=== PATIENT | male | born 1970 | race Caucasian/White ===

== ENCOUNTER 2023-02-11 19:30 | Inpatient (IN) | payer MEDICAID ==
[~2023-02-11] VITALS: Ht 175.3 cm; Wt 78.4 kg
[2023-02-11 20:00] VITALS: BP 130/87
[2023-02-11] MEDS ORDERED: ONDANSETRON HCL 4MG/2ML INJ IV PRN (21:15)
[2023-02-11] MEDS ORDERED: DEXTROSE 50% WATER 50ML SYRINGE IV PRN (21:15)
[2023-02-11] MEDS ORDERED: HYDRALAZINE HCL 10MG TABLET PO PRN (21:43)
[2023-02-11] MEDS: BLOOD SUGAR DIAGNOSTIC STRIP TEST SCH (22:15)
[2023-02-11] MEDS: ATORVASTATIN CALCIUM 40MG TABLET PO SCH (22:28)
[2023-02-11] MEDS: INSULIN GLARGINE 100 UNITS/ML SUBCUT SCH (22:30)
[2023-02-12] MEDS: BLOOD SUGAR DIAGNOSTIC STRIP TEST SCH ×4 (06:30→21:48)
[2023-02-12 07:08] LABS: CHLORIDE 109 mEq/L (98-107)
[2023-02-12 07:17] LABS: BASOPHILS % 0.5 % (0.0-2.0); EOSINOPHILS % 4.8 % (0.0-5.0); HEMATOCRIT. 45.6 % (42.0-52.0); HEMOGLOBIN. 15.4 g/dL (14.0-18.0); LYMPHOCYTES % 19.8 % (20.0-50.0); MEAN CORPUSCULAR HEMOGLOBIN 29.4 pg (28.0-32.0); MEAN PLATELET VOLUME 10.3 fl (7.4-10.4); NEUTROPHILS % 67.9 % (40.0-76.0); PLATELET 141 x1000/uL (130-400); RED BLOOD CELL COUNT 5.24 mill/uL (4.7-6.1); RED CELL DISTRIBUTION WIDTH 13.3 % (11.6-14.6)
[2023-02-12 08:00] VITALS: BP 129/86
[2023-02-12] MEDS: SPIRONOLACTONE 25MG TABLET PO SCH (09:34)
[2023-02-12] MEDS: ASPIRIN 81MG EC TABLET PO SCH (09:34)
[2023-02-12] MEDS: LOSARTAN POTASSIUM 100 MG TABLET PO SCH (09:35)
[2023-02-12] MEDS: CARVEDILOL 12.5MG TABLET PO SCH ×2 (09:36→16:56)
[2023-02-12] MEDS: AMLODIPINE 10MG TABLET PO SCH (09:36)
[2023-02-12] MEDS ORDERED: ENOXAPARIN 80MG/0.8ML SYR SUBCUT NR (11:30)
[2023-02-12] MEDS: ENOXAPARIN 40MG/0.4ML SYR SUBCUT SCH (12:33)
[2023-02-12] MEDS: INSULIN LISPRO 100 UNITS/ML SUBCUT SCH ×4 (12:34→21:00)
[2023-02-12] MEDS ORDERED: BISACODYL 5MG TABLET PO PRN (17:00)
[2023-02-12] MEDS: DOCUSATE SODIUM 100MG CAPSULE PO SCH (17:00)
[2023-02-12] MEDS ORDERED: LACTULOSE 20G/30ML UDC PO PRN (17:00)
[2023-02-12 20:08] VITALS: BP 137/89
[2023-02-12] MEDS ORDERED: ATORVASTATIN CALCIUM 40MG TABLET PO SCH (21:00)
[2023-02-12] MEDS: FAMOTIDINE 20MG TABLET PO SCH (22:05)
[2023-02-12] MEDS: ATORVASTATIN CALCIUM 40MG TABLET PO SCH (22:06)
[2023-02-12] MEDS: INSULIN GLARGINE 100 UNITS/ML SUBCUT SCH (22:10)
[2023-02-13] MEDS: BLOOD SUGAR DIAGNOSTIC STRIP TEST SCH ×4 (06:42→21:54)
[2023-02-13] MEDS: INSULIN LISPRO 100 UNITS/ML SUBCUT SCH ×4 (06:45→22:00)
[2023-02-13 07:08] LABS: BASOPHILS % 0.5 % (0.0-2.0); EOSINOPHILS % 3.4 % (0.0-5.0); HEMATOCRIT. 46.2 % (42.0-52.0); HEMOGLOBIN. 15.7 g/dL (14.0-18.0); LYMPHOCYTES % 20.6 % (20.0-50.0); MEAN CORPUSCULAR HEMOGLOBIN 29.5 pg (28.0-32.0); MEAN CORPUSCULAR VOLUME 86.8 fL (80.0-94.0); MEAN PLATELET VOLUME 10.4 fl (7.4-10.4); MONOCYTES % 7.1 % (2.0-8.0); NEUTROPHILS % 68.4 % (40.0-76.0); PLATELET 164 x1000/uL (130-400); RED BLOOD CELL COUNT 5.32 mill/uL (4.7-6.1)
[2023-02-13 07:40] LABS: CHLORIDE 107 mEq/L (98-107)
[2023-02-13 08:00] VITALS: BP 130/90
[2023-02-13 08:00] LABS: HDL CHOLESTEROL 29 mg/dL (40-59); LDL CHOLESTEROL 34 mg/dL (5-100)
[2023-02-13] MEDS: CLOPIDOGREL 75MG TABLET PO SCH (08:59)
[2023-02-13] MEDS: DOCUSATE SODIUM 100MG CAPSULE PO SCH ×2 (08:59→16:16)
[2023-02-13] MEDS: SPIRONOLACTONE 25MG TABLET PO SCH (09:00)
[2023-02-13] MEDS: LOSARTAN POTASSIUM 100 MG TABLET PO SCH (09:00)
[2023-02-13] MEDS: FAMOTIDINE 20MG TABLET PO SCH ×2 (09:00→21:55)
[2023-02-13] MEDS: ASPIRIN 81MG EC TABLET PO SCH (09:00)
[2023-02-13] MEDS: CARVEDILOL 12.5MG TABLET PO SCH ×2 (09:00→16:16)
[2023-02-13] MEDS: AMLODIPINE 10MG TABLET PO SCH (09:02)
[2023-02-13] MEDS: ENOXAPARIN 40MG/0.4ML SYR SUBCUT SCH (12:14)
[2023-02-13] MEDS: ACETAMINOPHEN 325MG TABLET PO PRN (13:58)
[2023-02-13 20:00] VITALS: BP 125/82
[2023-02-13] MEDS: ATORVASTATIN CALCIUM 40MG TABLET PO SCH (21:56)
[2023-02-13] MEDS: INSULIN GLARGINE 100 UNITS/ML SUBCUT SCH (22:02)
[2023-02-14 06:31] LABS: BASOPHILS % 0.5 % (0.0-2.0); EOSINOPHILS % 2.5 % (0.0-5.0); HEMOGLOBIN. 15.2 g/dL (14.0-18.0); LYMPHOCYTES % 16.8 % (20.0-50.0); MEAN CORPUSCULAR HEMOGLOBIN 28.6 pg (28.0-32.0); MEAN CORPUSCULAR VOLUME 86.9 fL (80.0-94.0); MEAN PLATELET VOLUME 10.1 fl (7.4-10.4); MONOCYTES % 6.9 % (2.0-8.0); NEUTROPHILS % 73.3 % (40.0-76.0); PLATELET 139 x1000/uL (130-400); RED BLOOD CELL COUNT 5.29 mill/uL (4.7-6.1); RED CELL DISTRIBUTION WIDTH 12.8 % (11.6-14.6)
[2023-02-14] MEDS: BLOOD SUGAR DIAGNOSTIC STRIP TEST SCH ×4 (06:50→21:00)
[2023-02-14] MEDS: INSULIN LISPRO 100 UNITS/ML SUBCUT SCH ×4 (06:50→22:35)
[2023-02-14 08:00] VITALS: BP 141/90
[2023-02-14 08:07] LABS: CHLORIDE 110 mEq/L (98-107)
[2023-02-14] MEDS: CLOPIDOGREL 75MG TABLET PO SCH (08:26)
[2023-02-14] MEDS: DOCUSATE SODIUM 100MG CAPSULE PO SCH ×2 (08:27→17:46)
[2023-02-14] MEDS: LOSARTAN POTASSIUM 100 MG TABLET PO SCH (08:27)
[2023-02-14] MEDS: AMLODIPINE 10MG TABLET PO SCH (08:27)
[2023-02-14] MEDS: SPIRONOLACTONE 25MG TABLET PO SCH (08:27)
[2023-02-14] MEDS: CARVEDILOL 12.5MG TABLET PO SCH ×2 (08:27→17:46)
[2023-02-14] MEDS: ASPIRIN 81MG EC TABLET PO SCH (08:28)
[2023-02-14] MEDS: ACETAMINOPHEN 325MG TABLET PO PRN (08:28)
[2023-02-14] MEDS: FAMOTIDINE 20MG TABLET PO SCH ×2 (08:28→22:30)
[2023-02-14] MEDS: ENOXAPARIN 40MG/0.4ML SYR SUBCUT SCH (12:38)
[2023-02-14 20:00] VITALS: BP 115/83
[2023-02-14] MEDS: ATORVASTATIN CALCIUM 40MG TABLET PO SCH (22:30)
[2023-02-14] MEDS: INSULIN GLARGINE 100 UNITS/ML SUBCUT SCH (22:40)
[2023-02-15 06:06] LABS: HEMATOCRIT 43.8 % (42.0-52.0); HEMOGLOBIN 14.8 g/dL (14.0-18.0); MEAN CORPUSCULAR HEMOGLOBIN 29.1 pg (28.0-32.0); MEAN CORPUSCULAR VOLUME 85.9 fL (80.0-94.0); PLATELET 136 x1000/uL (130-400); RED BLOOD CELL COUNT 5.09 mill/uL (4.7-6.1); RED CELL DISTRIBUTION WIDTH 13.1 % (11.6-14.6)
[2023-02-15] MEDS: BLOOD SUGAR DIAGNOSTIC STRIP TEST SCH ×4 (06:30→21:25)
[2023-02-15 06:33] LABS: CHLORIDE 105 mEq/L (98-107)
[2023-02-15 08:00] VITALS: BP 133/89
[2023-02-15] MEDS: INSULIN LISPRO 100 UNITS/ML SUBCUT SCH ×4 (09:00→21:44)
[2023-02-15] MEDS: DOCUSATE SODIUM 100MG CAPSULE PO SCH ×2 (09:37→17:05)
[2023-02-15] MEDS: CARVEDILOL 12.5MG TABLET PO SCH ×2 (09:38→17:06)
[2023-02-15] MEDS: SPIRONOLACTONE 25MG TABLET PO SCH (09:39)
[2023-02-15] MEDS: LOSARTAN POTASSIUM 100 MG TABLET PO SCH (09:39)
[2023-02-15] MEDS: AMLODIPINE 10MG TABLET PO SCH (09:39)
[2023-02-15] MEDS: ASPIRIN 81MG EC TABLET PO SCH (09:39)
[2023-02-15] MEDS: CLOPIDOGREL 75MG TABLET PO SCH (09:39)
[2023-02-15] MEDS ORDERED: NALOXONE HCL 0.4MG/ML VIAL IV PRN (10:00)
[2023-02-15] MEDS: FAMOTIDINE 20MG TABLET PO SCH ×2 (11:11→21:25)
[2023-02-15] MEDS: ENOXAPARIN 40MG/0.4ML SYR SUBCUT SCH (12:15)
[2023-02-15] MEDS: HYDROCODONE/ACETAMINOPHEN 5/325MG TABLET PO PRN ×2 (12:16→21:26)
[2023-02-15 20:35] VITALS: BP 144/72
[2023-02-15] MEDS: ATORVASTATIN CALCIUM 40MG TABLET PO SCH (21:25)
[2023-02-15] MEDS: INSULIN GLARGINE 100 UNITS/ML SUBCUT SCH (21:45)
[2023-02-16 05:33] LABS: HEMATOCRIT 42.7 % (42.0-52.0); HEMOGLOBIN 14.6 g/dL (14.0-18.0); MEAN CORPUSCULAR HEMOGLOBIN 29.5 pg (28.0-32.0); MEAN CORPUSCULAR VOLUME 86.4 fL (80.0-94.0); PLATELET 125 x1000/uL (130-400); RED BLOOD CELL COUNT 4.94 mill/uL (4.7-6.1); RED CELL DISTRIBUTION WIDTH 12.8 % (11.6-14.6)
[2023-02-16 05:52] LABS: CHLORIDE 107 mEq/L (98-107)
[2023-02-16] MEDS: BLOOD SUGAR DIAGNOSTIC STRIP TEST SCH ×4 (06:30→21:24)
[2023-02-16 08:00] VITALS: BP 131/83
[2023-02-16] MEDS: LOSARTAN POTASSIUM 100 MG TABLET PO SCH (08:26)
[2023-02-16] MEDS: DOCUSATE SODIUM 100MG CAPSULE PO SCH ×2 (08:26→16:23)
[2023-02-16] MEDS: CLOPIDOGREL 75MG TABLET PO SCH (08:26)
[2023-02-16] MEDS: FAMOTIDINE 20MG TABLET PO SCH ×2 (08:26→20:58)
[2023-02-16] MEDS: SPIRONOLACTONE 25MG TABLET PO SCH (08:27)
[2023-02-16] MEDS: AMLODIPINE 10MG TABLET PO SCH (08:27)
[2023-02-16] MEDS: ASPIRIN 81MG EC TABLET PO SCH (08:27)
[2023-02-16] MEDS: CARVEDILOL 12.5MG TABLET PO SCH ×2 (08:27→16:23)
[2023-02-16] MEDS: INSULIN LISPRO 100 UNITS/ML SUBCUT SCH ×4 (08:35→21:46)
[2023-02-16] MEDS: ENOXAPARIN 40MG/0.4ML SYR SUBCUT SCH (12:21)
[2023-02-16] MEDS: HYDROCODONE/ACETAMINOPHEN 5/325MG TABLET PO PRN (16:23)
[2023-02-16 20:00] VITALS: BP 109/76
[2023-02-16] MEDS: ATORVASTATIN CALCIUM 40MG TABLET PO SCH (20:58)
[2023-02-16] MEDS: INSULIN GLARGINE 100 UNITS/ML SUBCUT SCH (21:44)
[2023-02-17] MEDS: BLOOD SUGAR DIAGNOSTIC STRIP TEST SCH ×4 (05:47→21:00)
[2023-02-17 06:50] LABS: BASOPHILS % 0.5 % (0.0-2.0); EOSINOPHILS % 2.6 % (0.0-5.0); HEMATOCRIT. 43.8 % (42.0-52.0); HEMOGLOBIN. 14.9 g/dL (14.0-18.0); LYMPHOCYTES % 24.5 % (20.0-50.0); MEAN CORPUSCULAR HEMOGLOBIN 29.2 pg (28.0-32.0); MEAN CORPUSCULAR VOLUME 85.9 fL (80.0-94.0); MEAN PLATELET VOLUME 10.9 fl (7.4-10.4); MONOCYTES % 10.5 % (2.0-8.0); NEUTROPHILS % 61.9 % (40.0-76.0); PLATELET 132 x1000/uL (130-400)
[2023-02-17 07:11] LABS: CHLORIDE 106 mEq/L (98-107)
[2023-02-17 08:00] VITALS: BP 137/95
[2023-02-17] MEDS: SPIRONOLACTONE 25MG TABLET PO SCH (08:30)
[2023-02-17] MEDS: DOCUSATE SODIUM 100MG CAPSULE PO SCH ×2 (08:30→16:15)
[2023-02-17] MEDS: CLOPIDOGREL 75MG TABLET PO SCH (08:30)
[2023-02-17] MEDS: CARVEDILOL 12.5MG TABLET PO SCH ×2 (08:31→16:15)
[2023-02-17] MEDS: LOSARTAN POTASSIUM 100 MG TABLET PO SCH (08:31)
[2023-02-17] MEDS: AMLODIPINE 10MG TABLET PO SCH (08:31)
[2023-02-17] MEDS: ASPIRIN 81MG EC TABLET PO SCH (08:31)
[2023-02-17] MEDS: ACETAMINOPHEN 325MG TABLET PO PRN (08:34)
[2023-02-17] MEDS: FAMOTIDINE 20MG TABLET PO SCH ×2 (08:35→20:48)
[2023-02-17] MEDS: INSULIN LISPRO 100 UNITS/ML SUBCUT SCH ×4 (09:00→20:52)
[2023-02-17] MEDS: ENOXAPARIN 40MG/0.4ML SYR SUBCUT SCH (12:50)
[2023-02-17 20:00] VITALS: BP 130/78
[2023-02-17] MEDS: ATORVASTATIN CALCIUM 40MG TABLET PO SCH (20:48)
[2023-02-17] MEDS: INSULIN GLARGINE 100 UNITS/ML SUBCUT SCH (22:39)
[2023-02-18] MEDS: BLOOD SUGAR DIAGNOSTIC STRIP TEST SCH ×4 (06:30→20:37)
[2023-02-18 08:00] VITALS: BP 127/88
[2023-02-18] MEDS: LOSARTAN POTASSIUM 100 MG TABLET PO SCH (09:24)
[2023-02-18] MEDS: ASPIRIN 81MG EC TABLET PO SCH (09:24)
[2023-02-18] MEDS: DOCUSATE SODIUM 100MG CAPSULE PO SCH ×2 (09:24→17:21)
[2023-02-18] MEDS: FAMOTIDINE 20MG TABLET PO SCH ×2 (09:24→20:31)
[2023-02-18] MEDS: AMLODIPINE 10MG TABLET PO SCH (09:24)
[2023-02-18] MEDS: CLOPIDOGREL 75MG TABLET PO SCH (09:24)
[2023-02-18] MEDS: SPIRONOLACTONE 25MG TABLET PO SCH (09:24)
[2023-02-18] MEDS: CARVEDILOL 12.5MG TABLET PO SCH ×2 (09:24→17:24)
[2023-02-18] MEDS: INSULIN LISPRO 100 UNITS/ML SUBCUT SCH ×4 (09:33→20:34)
[2023-02-18] MEDS: ENOXAPARIN 40MG/0.4ML SYR SUBCUT SCH (12:08)
[2023-02-18 20:00] VITALS: BP 118/82
[2023-02-18] MEDS: ATORVASTATIN CALCIUM 40MG TABLET PO SCH (20:31)
[2023-02-18] MEDS: INSULIN GLARGINE 100 UNITS/ML SUBCUT SCH (22:20)
[2023-02-19] MEDS: BLOOD SUGAR DIAGNOSTIC STRIP TEST SCH ×4 (06:30→21:00)
[2023-02-19 07:18] LABS: HEMATOCRIT 43.8 % (42.0-52.0); MEAN CORPUSCULAR HEMOGLOBIN 29.4 pg (28.0-32.0); MEAN CORPUSCULAR VOLUME 85.7 fL (80.0-94.0); PLATELET 144 x1000/uL (130-400); RED CELL DISTRIBUTION WIDTH 12.6 % (11.6-14.6)
[2023-02-19 08:00] VITALS: BP 127/47
[2023-02-19 08:28] LABS: CHLORIDE 108 mEq/L (98-107)
[2023-02-19] MEDS: INSULIN LISPRO 100 UNITS/ML SUBCUT SCH ×4 (09:00→21:00)
[2023-02-19] MEDS: DOCUSATE SODIUM 100MG CAPSULE PO SCH ×2 (09:53→17:00)
[2023-02-19] MEDS: LOSARTAN POTASSIUM 100 MG TABLET PO SCH (09:53)
[2023-02-19] MEDS: SPIRONOLACTONE 25MG TABLET PO SCH (09:54)
[2023-02-19] MEDS: CLOPIDOGREL 75MG TABLET PO SCH (09:54)
[2023-02-19] MEDS: AMLODIPINE 10MG TABLET PO SCH (09:54)
[2023-02-19] MEDS: FAMOTIDINE 20MG TABLET PO SCH ×2 (09:54→21:18)
[2023-02-19] MEDS: CARVEDILOL 12.5MG TABLET PO SCH ×2 (09:55→17:00)
[2023-02-19] MEDS: ASPIRIN 81MG EC TABLET PO SCH (09:59)
[2023-02-19] MEDS: ENOXAPARIN 40MG/0.4ML SYR SUBCUT SCH (13:55)
[2023-02-19 20:16] VITALS: BP 102/96
[2023-02-19] MEDS: ATORVASTATIN CALCIUM 40MG TABLET PO SCH (21:18)
[2023-02-19] MEDS: ACETAMINOPHEN 325MG TABLET PO PRN ×2 (21:18→22:18)
[2023-02-19] MEDS: INSULIN GLARGINE 100 UNITS/ML SUBCUT SCH (22:00)
[2023-02-20] MEDS: INSULIN LISPRO 100 UNITS/ML SUBCUT SCH ×4 (06:28→21:42)
[2023-02-20] MEDS: BLOOD SUGAR DIAGNOSTIC STRIP TEST SCH ×4 (06:28→21:16)
[2023-02-20 08:00] VITALS: BP 122/80
[2023-02-20] MEDS: FAMOTIDINE 20MG TABLET PO SCH ×2 (08:51→21:37)
[2023-02-20] MEDS: ASPIRIN 81MG EC TABLET PO SCH (08:51)
[2023-02-20] MEDS: CLOPIDOGREL 75MG TABLET PO SCH (08:51)
[2023-02-20] MEDS: SPIRONOLACTONE 25MG TABLET PO SCH (08:51)
[2023-02-20] MEDS: DOCUSATE SODIUM 100MG CAPSULE PO SCH ×2 (08:51→17:36)
[2023-02-20] MEDS: LOSARTAN POTASSIUM 100 MG TABLET PO SCH (08:51)
[2023-02-20] MEDS: AMLODIPINE 10MG TABLET PO SCH (08:52)
[2023-02-20] MEDS: CARVEDILOL 12.5MG TABLET PO SCH ×2 (08:52→17:38)
[2023-02-20] MEDS: HYDROCODONE/ACETAMINOPHEN 5/325MG TABLET PO PRN (08:53)
[2023-02-20] MEDS: ENOXAPARIN 40MG/0.4ML SYR SUBCUT SCH (12:48)
[2023-02-20 20:00] VITALS: BP 119/78
[2023-02-20] MEDS: ATORVASTATIN CALCIUM 40MG TABLET PO SCH (21:37)
[2023-02-20] MEDS: INSULIN GLARGINE 100 UNITS/ML SUBCUT SCH (21:44)
[2023-02-21] MEDS: BLOOD SUGAR DIAGNOSTIC STRIP TEST SCH ×4 (06:02→21:24)
[2023-02-21] MEDS: INSULIN LISPRO 100 UNITS/ML SUBCUT SCH ×4 (06:29→21:00)
[2023-02-21 07:16] LABS: HEMATOCRIT 42.4 % (42.0-52.0); HEMOGLOBIN 14.5 g/dL (14.0-18.0); MEAN CORPUSCULAR HEMOGLOBIN 29.5 pg (28.0-32.0); PLATELET 146 x1000/uL (130-400); RED BLOOD CELL COUNT 4.93 mill/uL (4.7-6.1); RED CELL DISTRIBUTION WIDTH 12.4 % (11.6-14.6)
[2023-02-21 08:00] VITALS: BP 119/85
[2023-02-21 08:05] LABS: CHLORIDE 108 mEq/L (98-107)
[2023-02-21] MEDS: FAMOTIDINE 20MG TABLET PO SCH ×2 (09:00→21:26)
[2023-02-21] MEDS: LOSARTAN POTASSIUM 100 MG TABLET PO SCH (09:18)
[2023-02-21] MEDS: CLOPIDOGREL 75MG TABLET PO SCH (09:18)
[2023-02-21] MEDS: ASPIRIN 81MG EC TABLET PO SCH (09:18)
[2023-02-21] MEDS: DOCUSATE SODIUM 100MG CAPSULE PO SCH ×2 (09:18→16:57)
[2023-02-21] MEDS: AMLODIPINE 10MG TABLET PO SCH (09:19)
[2023-02-21] MEDS: CARVEDILOL 12.5MG TABLET PO SCH ×2 (09:19→16:58)
[2023-02-21] MEDS: SPIRONOLACTONE 25MG TABLET PO SCH (09:19)
[2023-02-21] MEDS: ENOXAPARIN 40MG/0.4ML SYR SUBCUT SCH (13:32)
[2023-02-21 20:09] VITALS: BP 139/84
[2023-02-21] MEDS: ATORVASTATIN CALCIUM 40MG TABLET PO SCH (21:26)
[2023-02-21] MEDS: INSULIN GLARGINE 100 UNITS/ML SUBCUT SCH (21:30)
[2023-02-22] MEDS: INSULIN LISPRO 100 UNITS/ML SUBCUT SCH ×7 (06:27→20:58)
[2023-02-22] MEDS: BLOOD SUGAR DIAGNOSTIC STRIP TEST SCH ×4 (06:28→21:50)
[2023-02-22 08:00] VITALS: BP 130/82
[2023-02-22] MEDS: CLOPIDOGREL 75MG TABLET PO SCH (09:22)
[2023-02-22] MEDS: DOCUSATE SODIUM 100MG CAPSULE PO SCH ×2 (09:22→17:57)
[2023-02-22] MEDS: FAMOTIDINE 20MG TABLET PO SCH ×2 (09:22→20:48)
[2023-02-22] MEDS: ASPIRIN 81MG EC TABLET PO SCH (09:22)
[2023-02-22] MEDS: SPIRONOLACTONE 25MG TABLET PO SCH (09:23)
[2023-02-22] MEDS: AMLODIPINE 10MG TABLET PO SCH (09:23)
[2023-02-22] MEDS: CARVEDILOL 12.5MG TABLET PO SCH ×2 (09:24→18:00)
[2023-02-22] MEDS: LOSARTAN POTASSIUM 100 MG TABLET PO SCH (09:28)
[2023-02-22] MEDS: ENOXAPARIN 40MG/0.4ML SYR SUBCUT SCH (14:28)
[2023-02-22 20:27] VITALS: BP 118/74
[2023-02-22] MEDS: ATORVASTATIN CALCIUM 40MG TABLET PO SCH (20:48)
[2023-02-22] MEDS: INSULIN GLARGINE 100 UNITS/ML SUBCUT SCH (22:59)
[2023-02-23] MEDS: BLOOD SUGAR DIAGNOSTIC STRIP TEST SCH ×4 (06:20→21:55)
[2023-02-23] MEDS: INSULIN LISPRO 100 UNITS/ML SUBCUT SCH ×7 (07:00→22:14)
[2023-02-23 07:12] LABS: HEMATOCRIT 42.6 % (42.0-52.0); HEMOGLOBIN 14.4 g/dL (14.0-18.0); MEAN CORPUSCULAR VOLUME 85.6 fL (80.0-94.0); PLATELET 162 x1000/uL (130-400); RED BLOOD CELL COUNT 4.98 mill/uL (4.7-6.1); RED CELL DISTRIBUTION WIDTH 12.4 % (11.6-14.6)
[2023-02-23 07:42] LABS: CHLORIDE 110 mEq/L (98-107)
[2023-02-23 08:00] VITALS: BP 120/83
[2023-02-23] MEDS: CLOPIDOGREL 75MG TABLET PO SCH (08:23)
[2023-02-23] MEDS: LOSARTAN POTASSIUM 100 MG TABLET PO SCH (08:23)
[2023-02-23] MEDS: DOCUSATE SODIUM 100MG CAPSULE PO SCH ×2 (08:23→17:30)
[2023-02-23] MEDS: ASPIRIN 81MG EC TABLET PO SCH (08:23)
[2023-02-23] MEDS: FAMOTIDINE 20MG TABLET PO SCH ×2 (08:23→21:55)
[2023-02-23] MEDS: SPIRONOLACTONE 25MG TABLET PO SCH (08:26)
[2023-02-23] MEDS: CARVEDILOL 12.5MG TABLET PO SCH ×2 (08:27→17:31)
[2023-02-23] MEDS: AMLODIPINE 10MG TABLET PO SCH (08:27)
[2023-02-23] MEDS: ENOXAPARIN 40MG/0.4ML SYR SUBCUT SCH (12:45)
[2023-02-23 20:00] VITALS: BP 120/79
[2023-02-23] MEDS: ATORVASTATIN CALCIUM 40MG TABLET PO SCH (21:55)
[2023-02-23] MEDS: INSULIN GLARGINE 100 UNITS/ML SUBCUT SCH (22:16)
[2023-02-24] MEDS: BLOOD SUGAR DIAGNOSTIC STRIP TEST SCH ×4 (07:24→21:11)
[2023-02-24 08:00] VITALS: BP 128/83
[2023-02-24] MEDS: CARVEDILOL 12.5MG TABLET PO SCH ×2 (11:54→19:15)
[2023-02-24] MEDS: LOSARTAN POTASSIUM 100 MG TABLET PO SCH (11:54)
[2023-02-24] MEDS: ASPIRIN 81MG EC TABLET PO SCH (11:54)
[2023-02-24] MEDS: DOCUSATE SODIUM 100MG CAPSULE PO SCH ×2 (11:54→19:16)
[2023-02-24] MEDS: FAMOTIDINE 20MG TABLET PO SCH ×2 (11:54→21:11)
[2023-02-24] MEDS: CLOPIDOGREL 75MG TABLET PO SCH (11:54)
[2023-02-24] MEDS: AMLODIPINE 10MG TABLET PO SCH (11:55)
[2023-02-24] MEDS: SPIRONOLACTONE 25MG TABLET PO SCH (11:56)
[2023-02-24] MEDS: INSULIN LISPRO 100 UNITS/ML SUBCUT SCH ×7 (12:00→22:28)
[2023-02-24] MEDS: ENOXAPARIN 40MG/0.4ML SYR SUBCUT SCH (19:17)
[2023-02-24 20:00] VITALS: BP 124/84
[2023-02-24] MEDS: ATORVASTATIN CALCIUM 40MG TABLET PO SCH (21:11)
[2023-02-24] MEDS: INSULIN GLARGINE 100 UNITS/ML SUBCUT SCH (22:28)
[2023-02-25] MEDS: BLOOD SUGAR DIAGNOSTIC STRIP TEST SCH (06:37)
[2023-02-25] MEDS: INSULIN LISPRO 100 UNITS/ML SUBCUT SCH ×2 (06:51→08:02)
[2023-02-25 07:01] LABS: HEMATOCRIT 41.9 % (42.0-52.0); HEMOGLOBIN 14.4 g/dL (14.0-18.0); MEAN CORPUSCULAR HEMOGLOBIN 29.4 pg (28.0-32.0); MEAN CORPUSCULAR VOLUME 85.6 fL (80.0-94.0); PLATELET 162 x1000/uL (130-400); RED CELL DISTRIBUTION WIDTH 12.5 % (11.6-14.6)
[2023-02-25 07:52] LABS: CHLORIDE 106 mEq/L (98-107)
[2023-02-25 08:00] VITALS: BP 99/55
[2023-02-25] MEDS: SPIRONOLACTONE 25MG TABLET PO SCH (08:39)
[2023-02-25] MEDS: CARVEDILOL 12.5MG TABLET PO SCH (08:40)
[2023-02-25] MEDS: LOSARTAN POTASSIUM 100 MG TABLET PO SCH (08:40)
[2023-02-25] MEDS: DOCUSATE SODIUM 100MG CAPSULE PO SCH (08:40)
[2023-02-25] MEDS: AMLODIPINE 10MG TABLET PO SCH (08:40)
[2023-02-25] MEDS: ASPIRIN 81MG EC TABLET PO SCH (08:40)
[2023-02-25] MEDS: CLOPIDOGREL 75MG TABLET PO SCH (08:40)
[2023-02-25] MEDS: FAMOTIDINE 20MG TABLET PO SCH (08:41)
[2023-02-25 10:04] VITALS: BP 99/55
[2023-02-25] MEDS ORDERED: ASPI-1406 PO (10:10)
[2023-02-25] MEDS ORDERED: CLOP-31 PO (10:10)
[2023-02-25] MEDS ORDERED: AMLO10TA80 PO (10:10)
[2023-02-25] MEDS ORDERED: LIP40 PO (10:10)
[2023-02-25] MEDS ORDERED: COR12 PO ×2 (10:10→10:11)
[2023-02-25] MEDS ORDERED: SPIR25TA PO (10:10)
[2023-02-25] MEDS ORDERED: LANTUSUD SUBCUT (10:10)
[2023-02-25] MEDS ORDERED: LOSA100T32 PO (10:10)
== END 2023-02-25 10:30 | disposition home health service (06) | DRG 45 ==
PROVIDERS: ADMIT Psychiatry & Neurology Neurology; ATTEND Hospitalist
DX: I63.512 Cerebral infarction due to unspecified occlusion or stenosis of left middle cerebral artery (principal); I21.4 Non-ST elevation (NSTEMI) myocardial infarction; I50.23 Acute on chronic systolic (congestive) heart failure; E11.65 Type 2 diabetes mellitus with hyperglycemia; E78.5 Hyperlipidemia, unspecified; I11.0 Hypertensive heart disease with heart failure; I65.1 Occlusion and stenosis of basilar artery; R63.4 Abnormal weight loss; R53.1 Weakness; I67.2 Cerebral atherosclerosis; Z86.73 Personal history of transient ischemic attack (TIA), and cerebral infarction without residual deficits; Z79.899 Other long term (current) drug therapy; Z91.040 Latex allergy status; Z68.25 Body mass index [BMI] 25.0-25.9, adult; Z79.82 Long term (current) use of aspirin; Z87.891 Personal history of nicotine dependence
CPT/HCPCS: 36415; 80048; 80053; 80061; 82962; 84443; 85025; 85027; 92523; 92610; 93970; 97110; 97112; 97116; 97150; 97162; 97166; 97530; 97535; 97542; 97760; A4565; J1650; J1815; 97763-GO